=== PATIENT | female | born 1985 | race Caucasian/White ===

== ENCOUNTER 2018-01-22 12:06 | Emergency (ER) | payer OTHER ==
[2018-01-22] MEDS: METOCLOPRAMIDE 10 MG INJ IV (13:50)
[2018-01-22] MEDS: DIPHENHYDRAMINE 50 MG INJ IV (13:51)
[2018-01-22] MEDS: SOD CHLORIDE 0.9% 1,000 ML IV (13:52)
== END 2018-01-22 14:22 | disposition home or self-care (01) ==
LOC: FTE 12:06
DX: R51 Headache (principal)
CPT/HCPCS: 96374; 96375; 99284-25

== ENCOUNTER 2019-01-16 18:57 | Emergency (ER) | payer SELFPAY, OTHER | END 2019-01-16 23:20 | disposition left against medical advice (07) | LOC: FTE 18:57 | DX: Z53.21 Procedure and treatment not carried out due to patient leaving prior to being seen by health care provider (principal) ==

== ENCOUNTER 2019-01-17 09:03 | Emergency (ER) | payer OTHER ==
[2019-01-17] MEDS: SOD CHLORIDE 0.9% 1,000 ML IV (10:15)
[2019-01-17] MEDS: KETOROLAC 30 MG INJ IV (10:16)
[2019-01-17] MEDS: DIPHENHYDRAMINE 50 MG INJ IV (10:16)
[2019-01-17] MEDS: METOCLOPRAMIDE 10 MG INJ IV (10:16)
== END 2019-01-17 11:33 | disposition home or self-care (01) ==
LOC: FTE 11:33
DX: R51 Headache (principal)
CPT/HCPCS: 81025; 96361; 96374; 96375; 99284-25